=== PATIENT | female | born 2005 | race Two or more races ===

== ENCOUNTER → 2025-03-11 | Outpatient (REF) | payer OTHER ==
[2025-03-11 15:07] LABS: ESTIMATED AVERAGE GLUCOSE 94.0 MG/DL (60-110)
[2025-03-11 15:14] LABS: HEPATITIS B SURFACE ANTIBODY NEGATIVE (POSITIVE); TOTAL 25(OH) VITAMIN D 9.0 NG/ML (20.0-100.0)
[2025-03-11 15:40] LABS: HIV 1&2 SCREEN NEGATIVE (NEGATIVE)
[2025-03-11 15:43] LABS: ALT/SGPT 13 U/L (7.0-40); AST/SGOT 19 U/L (<34); CALCIUM LEVEL 8.7 MG/DL (8.5-10.1); CARBON DIOXIDE LEVEL 25 MMOL/L (20-31); CHLORIDE LEVEL 104 MMOL/L (98-107); CHOLESTEROL LEVEL 246 MG/DL (<200); CHOLESTEROL RISK RATIO 3.43 (<5); CREATININE FOR GFR 0.58 MG/DL (0.55-1.30); GLOMERULAR FILTRATION RATE > 90.0 (>60); LDL CHOLESTEROL 141.5 MG/DL (<100); NON-HDL-C 174.3 MG/DL; POTASSIUM SERUM 3.5 MMOL/L (3.5-5.1); SODIUM LEVEL 142 MMOL/L (136-145); TRIGLYCERIDES LEVEL 164 MG/DL (<150)
== END ==
LOC: M LAB REF 14:28
PROVIDERS: ATTEND Physician Assistant
DX: Z34.93 Encounter for supervision of normal pregnancy, unspecified, third trimester (principal); E55.9 Vitamin D deficiency, unspecified; Z11.9 Encounter for screening for infectious and parasitic diseases, unspecified

== ENCOUNTER → 2025-04-01 | Outpatient (REF) | payer OTHER | LOC: M PLALAB 08:56 | PROVIDERS: ATTEND Specialist | DX: Z34.80 Encounter for supervision of other normal pregnancy, unspecified trimester (principal) ==

== ENCOUNTER 2025-04-28 23:01 | Inpatient (IN) | payer OTHER ==
[~2025-04-28] VITALS: Ht 175.3 cm; Wt 97.7 kg
[2025-04-28 23:18] VITALS: BP 123/78
[2025-04-28] MEDS ORDERED: IRON27TA2 PO (23:22)
[2025-04-28] MEDS ORDERED: PRENTAB9 PO (23:22)
[2025-04-28] MEDS ORDERED: HOME MED LIST COMPLETE! XX SCH (23:25)
[2025-04-29] VITALS (37 sets, daily range): BP systolic 96–134; BP diastolic 50–92; TEMP 98–98.3; O2SAT 98–99
[2025-04-29] MEDS: LR 1,000 ML IV ONE (00:05)
[2025-04-29] MEDS ORDERED: OXYTOCIN DRIP 30 UNITS in IV 1 EA IV PRN (00:15)
[2025-04-29] MEDS ORDERED: CARBOPROST TROMETHAMINE 250 MCG/ML AMP IM PRN (00:15)
[2025-04-29] MEDS ORDERED: OXYTOCIN INJ 10UNITS/ML 1ML VIAL IM PRN (00:15)
[2025-04-29] MEDS ORDERED: LIDOCAINE 1% MDV 20 ML VIAL INFIL PRN (00:15)
[2025-04-29 00:56] LABS: PLATELET COUNT, AUTOMATED 281 10^3/uL (150-450)
[2025-04-29] MEDS: LR 1,000 ML IV SCH (01:04)
[2025-04-29] MEDS ORDERED: FENTANYL 2 MCG/ML ROPIVACAINE 0.2% IN 0.9% NACL 100 ML IVBAG As Ordered ONE (01:18)
[2025-04-29] MEDS ORDERED: NALOXONE INJ 0.4 MG/1 ML VIAL IV PRN (01:20)
[2025-04-29] MEDS ORDERED: diphenhydrAMINE 50 MG/ML VIAL IV PRN (01:20)
[2025-04-29] MEDS ORDERED: EPIDURAL/PCA KEYS XX PRN (01:20)
[2025-04-29] MEDS: FENTANYL/ROPIVACAINE/NACL BAG 100 ML EPIDURAL SCH (01:31)
[2025-04-29 01:53] LABS: HIV 1&2 SCREEN NEGATIVE (NEGATIVE)
[2025-04-29 02:01] LABS: HEPATITIS C VIRUS ABY INDEX < 0.02 INDEX (<0.8)
[2025-04-29] MEDS ORDERED: ONDANSETRON 4MG/2ML VIAL As Ordered ONE (02:05)
[2025-04-29] MEDS: ONDANSETRON 4MG/2ML VIAL IV PRN (02:06)
[2025-04-29] MEDS: OXYTOCIN DRIP 30 UNITS in IV 1 EA IV SCH (03:18)
[2025-04-29] MEDS ORDERED: TRANEXAMIC ACID 100 MG/ML 10ML VIAL As Ordered ONE (05:30)
[2025-04-29] MEDS: LR 500 ML IV PRN (05:34)
[2025-04-29] MEDS: TRANEXAMIC ACID INJection 1,000 MG in NS 100 ML IV PRN (06:51)
[2025-04-29] MEDS: OXYTOCIN DRIP 30 UNITS in IV 1 EA IV PRN (06:52)
[2025-04-29] MEDS ORDERED: METHYLERGONOVINE MALEATE 0.2 MG/ML 1 ML VIAL As Ordered ONE (06:58)
[2025-04-29] MEDS: METHYLERGONOVINE MALEATE 0.2 MG/ML 1 ML VIAL IM PRN (07:00)
[2025-04-29] MEDS ORDERED: RHOGAM 300MCG (1500IU) INJ IM SCH (07:20)
[2025-04-29] MEDS ORDERED: METHYLERGONOVINE MALEATE 0.2 MG TAB PO PRN (07:20)
[2025-04-29] MEDS ORDERED: IBUPROFEN 600 MG TAB PO PRN (07:20)
[2025-04-29] MEDS ORDERED: IBUPROFEN 800 MG TAB PO PRN (07:20)
[2025-04-29] MEDS: PRENATAL VITAMINS CHEWABLE TABLET PO SCH (10:56)
[2025-04-29] MEDS: ACETAMINOPHEN 325 MG TAB PO PRN (10:57)
[2025-04-29] MEDS: ACETAMINOPHEN 500 MG TAB PO PRN (15:56)
[2025-04-30 05:47] VITALS: BP 121/75; O2SAT 99
[2025-04-30] MEDS: DIBUCAINE 1% OINTMENT 30 GM TOP PRN (09:30)
[2025-04-30 18:00] VITALS: BP 122/68; O2SAT 98
[2025-04-30] MEDS: MEASLES,MUMPS,RUBELLA VACCINE INJ (MMR-II) SC.IMMUN ONE (19:02)
[2025-04-30] MEDS: DOCUSATE SODIUM 100 MG CAPSULE PO PRN (20:07)
[2025-05-01 05:20] VITALS: BP 112/64; O2SAT 99
== END 2025-05-01 13:15 | disposition home or self-care (01) | DRG 807 ==
LOC: M LDO 23:01 → M LDI 23:55 → M OBS 04-29 09:33
PROVIDERS: ADMIT Advanced Practice Midwife; ATTEND Advanced Practice Midwife
PROC: 10E0XZZ Delivery of Products of Conception, External Approach (ICD-10-PCS; principal; 2025-04-29)
PROC: 0KQM0ZZ Repair Perineum Muscle, Open Approach (ICD-10-PCS; 2025-04-29)
DX: O48.0 Post-term pregnancy (principal); Z37.0 Single live birth; Z3A.40 40 weeks gestation of pregnancy; O70.1 Second degree perineal laceration during delivery